=== PATIENT | female | born 1980 | race Caucasian/White ===

== ENCOUNTER 2017-01-25 19:53 | Emergency (ER) | payer MEDICAID ==
[~2017-01-25] VITALS: Ht 162.6 cm; Wt 68.0 kg
[~2017-01-25 19:53] MED LIST: FIORICET PO; NAPR-688 PO
[2017-01-25 19:55] VITALS: Ht 162.6 cm; Wt 68.0 kg
[2017-01-25] MEDS ORDERED: IBUPROFEN 200 MG TAB PO ONE (21:30)
--- NOTE | 2017-01-25 23:16 | ERD ---
ER Documentation Chief Complaint Date/Time DATE: 01/25/17 TIME: 23:02 Chief Complaint sp fround level fall, left knee pain HPI This pleasant 36-year-old female presents to emergency department for left knee pain. Patient reports mechanical slip and fall at home 4 days ago. Patient states that she was carrying groceries and slipped on 1 of her children's toys landing directly onto left knee. Patient reports that she has hardwood floors that there was pain immediately after injury that she did not need assistance getting up. Patient reports she has been ambulating with a limp, denies any other injury, denies that she hit her head loss consciousness or became dizzy. Patient states that pain is located on the distal portion of knee. Radiating to calf. Denies any numbness or tingling to her feet, denies any chest pain, shortness of breath. Patient has been using [id number] ibuprofen for symptomatic relief with intermittent relief of symptoms. ROS All systems reviewed and are negative except as per history of present illness. Medications Home Meds Active Scripts Ibuprofen* (Ibuprofen*) 400 Mg Tablet, 400 MG PO Q6H Y for PAIN for 10 Days, TAB Prov:SUSAN GEE 01/25/17 Naproxen* (Naproxen*) 500 Mg Tablet, 500 MG PO BID Y for HEADACHE for 10 Days, # 30 TAB Prov:NEGAR MARSHALL NP 02/19/16 Acetamin/Butalbital/Caffeine* (Fioricet*) 1 Tab Tab, 1 TAB PO Q4H Y for PAIN LEVEL 1-5 for 10 Days, TAB Prov:CHAMP FLORES MD 12/14/14 Allergies Allergies: Coded Allergies: No Known Allergy (Verified , 12/14/14) PMhx/Soc History of Surgery: Yes () Anesthesia Reaction: No Hx Neurological Disorder: No Hx Respiratory Disorders: No Hx Cardiac Disorders: No Hx Psychiatric Problems: No Hx Miscellaneous Medical Probl: No Hx Alcohol Use: No Hx Substance Use: No Hx Tobacco Use: No Smoking Status: Never smoker Physical Exam Vitals Vital Signs Date Time Temp Pulse Resp B/P Pulse Ox O2 Delivery O2 Flow Rate FiO2 01/25/17 23:44 97.7 01/25/17 19:55 74.4 69 20 112/58 100 Vitals stable triage note reviewed Physical Exam Const: Well-appearing, well-hydrated, well-nourished in no acute distress, patient ambulating with a limp. Head: Atraumatic Eyes: Normal Conjunctiva, PERRLA, EOM ENT: Normal External Ears, Nose and Mouth, mucous membranes. Neck: Resp: Respirations even and unlabored, no respiratory Cardio: Abd: Skin: Back: No midline or flank tenderness Ext: Lower Extremity left knee Skin: No edema, ecchymosis healing, evans and yellow and brown. No obvious deformity, or open wounds. No warmth or erythema. Compartments: Soft Motor: Full active range of motion hip/knee/ankle/foot Sensation: Intact to light touch FDWS/MF/LF/P surfaces. Bones: Tender to palpation over lateral patella, medial joint lines nontender, no proximal fibula or popliteal tenderness, pulses intact full extension pain with flexion. Joints: No effusion or laxity Pulses/Perfusion: 2+ DP, Capillary refill < 2 seconds Neur: Awake and alert Psych: Normal Mood and Affect Results 24 hrs Current Medications Medications (Trade) Dose Ordered Sig/Rafia Route PRN Reason Start Time Stop Time Status Last Admin Dose Admin Ibuprofen (Motrin) 400 mg ONCE ONCE PO 01/25/17 21:30 01/25/17 21:31 DC 01/25/17 21:30 Procedures/MDM PROCEDURE: Left knee x-ray CLINICAL INDICATION: Injury, pain TECHNIQUE: AP, lateral and oblique views of the left knee were obtained. COMPARISON: None FINDINGS: There is normal mineralization. No acute fracture or dislocation is seen. There are no significant degenerative changes. There is no joint effusion. There is no significant soft tissue swelling. IMPRESSION: Normal x-ray of the left knee. .Satnam Han MD, MD Date Time This pleasant 36-year-old female presents to emergency department with complaint of left knee pain after mechanical slip and fall. Patient has bruising without warmth or erythema, no gross edema or effusion noted tender over patella and medial ligament. Low suspicion for patellar dislocation. Joint dislocation, or tibial plateau fracture. No suspicion for DVT. Patient observed ambulating with obvious limp full extension pain with weightbearing. X -ray ordered with documented findings of; normal x-ray evaluation of left knee. See above for full details. Patient treated with ibuprofen while in emergency department with the discharged with ibuprofen, Romulo wrap, and crutches, follow-up with primary care physician for possible referral to physical therapy if indicated, rest, ice, compression, elevation discussed. I feel the patient is stable for discharge at this time. I have discussed results, examination findings, the treatment plan with the patient and family present prior to discharge. Indications for emergent reevaluation, side effects of medication were also discussed. All questions were answered. Patient verbalizes understanding and agrees with plan of care. Departure Diagnosis: Primary Impression: Knee contusion Encounter type: initial encounter Laterality: left Qualified Code: S80.02XA - Contusion of left knee, initial encounter Condition: Good Patient Instructions: Contusion, Lower Extremity Referrals: [facility] Additional Instructions: Thank you for for coming to [facility] for your care today. Please ask your nurse or provider if you have questions about your care today and do not leave until all your questions have been answered. Please use any medications given as directed and follow-up with your doctor (or the doctor you were referred to) in the next 2-3 days. If you do not have a primary care doctor you may follow up at the [facility] (listed below). You may also use motrin and tylenol as needed for fever and/or pain unless instructed otherwise by your provider or nurse. Indications for more urgent follow-up have been discussed, but you may return to the Emergency Department at ANY time for any worrisome or worsening symptoms. If you have abdominal pain, please know that no test or exam you received is perfect and you should follow up within 8 hours for continued pain. If you had any imaging studies today, such as an X-Ray or CT Scan, these studies will be reviewed later by a radiologist. You will be called if there are important findings that were not identified today, so make sure the contact information you provided at registration is correct. If you received any narcotic pain control medicine today, such as Vicodin, Morphine or Dilaudid, your coordination and judgment may be affected for a number of hours. Please do not drive or operate heavy machinery, and you may want someone to assist you at home. If you were given a prescription for narcotic medication, be aware that it is very addictive- use sparingly and only if necessary. SUSAN GEE Jan 25, 2017 23:13
--- NOTE | 2017-01-25 23:20 | RADRPT ---
PROCEDURE: Left knee x-ray CLINICAL INDICATION: Injury, pain TECHNIQUE: AP, lateral and oblique views of the left knee were obtained. COMPARISON: None FINDINGS: There is normal mineralization. No acute fracture or dislocation is seen. There are no significant degenerative changes. There is no joint effusion. There is no significant soft tissue swelling. IMPRESSION: Normal x-ray of the left knee. RPTAT: HJES .Satnam Han MD, MD Date Time Electronically viewed and signed by .Satnam Han MD, on 01/25/2017 23:19 .S/
[2017-01-25] MEDS ORDERED: IBUP400T22 PO (23:29)
[2017-01-25 23:44] VITALS: TEMP 97.7
== END 2017-01-25 23:45 | disposition home or self-care (01) ==
LOC: FTE 19:53
DX: S80.02XA Contusion of left knee, initial encounter (principal); W01.0XXA Fall on same level from slipping, tripping and stumbling without subsequent striking against object, initial encounter; Y92.009 Unspecified place in unspecified non-institutional (private) residence as the place of occurrence of the external cause
CPT/HCPCS: 73562; Z7610

== ENCOUNTER 2017-10-05 21:55 | Emergency (ER) | END 2017-10-06 00:18 | disposition home or self-care (01) ==